=== PATIENT | male | born 1965 | race Hispanic/Latino ===

== ENCOUNTER 2018-09-01 22:44 | Emergency (ER) | payer MEDICAID ==
[2018-09-01 22:44] VITALS: BMI 24.3
[2018-09-01 22:53] VITALS: BP 156/89; PULSE 78; RESP 20; TEMP 97.8; O2SAT 100
[2018-09-01] MEDS ORDERED: PROPARACAINE/FLUORESCEIN SOD 100 DROP/5 ML BOTTLE OS STA (23:05)
[2018-09-01] MEDS ORDERED: Tdap Vaccine 0.5 ml Vial (10-64 yrs) IM ONE ×2 (23:22→23:33)
[2018-09-02] MEDS ORDERED: Erythromycin 0.5% Ophth Oint 1 APPLIC/3.5 G OS STA (00:02)
--- NOTE | 2018-09-02 00:10 | C.PDOC ---
History Of Present Illness 53 y/o male c/o fb sensation in left eye since Saturday afternoon when taking things off shelf, felt something go onto eye. no blurred vision. no improvement with irrigation at home. Time Seen by Provider: 09/01/18 22:54 Chief Complaint (Nursing): Eye Problem History Per: Patient History/Exam Limitations: no limitations Onset/Duration Of Symptoms: Hrs (8) Current Symptoms Are (Timing): Still Present Injury To Eye?: No Severity: Mild Quality: "Pain" Associated Symptoms: FB Sensation. denies: Decreased Vision, Swelling Past Medical History Reviewed: Historical Data, Nursing Documentation, Vital Signs Vital Signs: Last Vital Signs Temp 97.8 F 09/01/18 22:50 Pulse 78 09/01/18 22:50 Resp 20 09/01/18 22:50 BP 156/89 H 09/01/18 22:50 Pulse Ox 100 09/01/18 22:50 - Medical History PMH: Hypercholesterolemia Denies: Chronic Kidney Disease Family History: States: Unknown Family Hx - Social History Hx Alcohol Use: No Hx Substance Use: No - Immunization History Hx Tetanus Toxoid Vaccination: No Hx Influenza Vaccination: No Hx Pneumococcal Vaccination: No Review Of Systems Constitutional: Negative for: Fever, Chills Eyes: Positive for: Pain. Negative for: Vision Change, Conjunctivae Inflammation, Eyelid Inflammation, Redness Physical Exam - Physical Exam Appears: Non-toxic, No Acute Distress Skin: Warm, Dry Head: Atraumatic, Normacephalic Eye(s): bilateral: PERRL, EOMI, right: Normal Inspection, left: Other (fb noted over pupil, medial aspect; not seen again; no fb noted under lid. scant fluorescein uptake nted at 11 oclcok position. eye irrigated with ns. ) ED Course And Treatment O2 Sat by Pulse Oximetry: 100 Medical Decision Making Medical Decision Making: pt with fb; seen at first but then unable to find again to remove; scant fluorescein uptake noted. eye irrigated with ns, re-examined again and no fb noted. will d/c with erythromycin and ophthalmology f/u Disposition Counseled Patient/Family Regarding: Studies Performed, Diagnosis, Need For Followup, Rx Given - Disposition Referrals: Mike Manzo [Staff Provider] - Disposition: HOME/ ROUTINE Disposition Time: 00:19 Condition: GOOD Additional Instructions: Please put one half inch ribbon of ointment into lower left lid 2 times per day. CallDr Anais (eye docotr) to make soonest appointment for follow up. Return to ER for any worse symtpms. Instructions: Foreign Body in Eye (DC), Corneal Abrasion (DC) Forms: [facility] ([place]), General Discharge Instructions - Clinical Impression Clinical Impression: Corneal abrasion, Foreign body of external eye, left
[2018-09-02] MEDS ORDERED: Erythromycin 0.5% Ophth Oint 1 APPLIC/3.5 G ONE (00:13)
== END 2018-09-02 00:25 | disposition home or self-care (01) ==
LOC: C.ER 22:44
DX: T15.02XA Foreign body in cornea, left eye, initial encounter (principal); X58.XXXA Exposure to other specified factors, initial encounter; E78.00 Pure hypercholesterolemia, unspecified; Z23 Encounter for immunization

== ENCOUNTER 2018-11-20 08:20 | Day surgery (SDC) | payer MEDICAID ==
[2018-11-20] MEDS ORDERED: Propofol 10 mg/ml Inj (20 ML) ONE ×2 (11:55→12:04)
[2018-11-20 13:44] VITALS: TEMP 97.9
[2018-11-20 14:51] VITALS: BP 115/67; PULSE 59; RESP 19; O2SAT 96
== END 2018-11-20 13:40 | disposition home or self-care (01) ==
LOC: C.ENDO 08:20
PROVIDERS: ATTEND Internal Medicine Gastroenterology
DX: Z12.11 Encounter for screening for malignant neoplasm of colon (principal); K64.1 Second degree hemorrhoids
CPT/HCPCS: 45378; J2704